=== PATIENT | female | born 1960 | race Two or more races ===

== ENCOUNTER 2016-03-23 06:53 | Day surgery (SDC) | payer OTHER ==
[~2016-03-23] VITALS: Ht 160 cm; Wt 71.7 kg
[2016-03-23] MEDS ORDERED: LISI20TA11 PO (08:17)
[2016-03-23] MEDS ORDERED: SYN112 PO (08:17)
[2016-03-23 08:19] VITALS: Ht 160 cm; Wt 71.7 kg
[2016-03-23] MEDS ORDERED: ATEN-51 PO (08:32)
[2016-03-23 08:45] VITALS: BP 138/78; PULSE 89; RESP 20
[2016-03-23] MEDS ORDERED: MIDAZOLAM 1 MG/ML 2 ML INJ ONE ×2 (09:30)
[2016-03-23] MEDS ORDERED: FENTAnyl 50 MCG/ML VIAL ONE ×2 (09:30)
[2016-03-23 09:55] VITALS: BP 104/68; PULSE 56; RESP 13
--- NOTE | 2016-03-23 14:56 | GILP ---
DATE OF PROCEDURE: NAME OF PROCEDURE: Colonoscopy. SURGEON: Teressa San MD PREOPERATIVE DIAGNOSIS: Screening colonoscopy. POSTOPERATIVE DIAGNOSES: 1. Colonoscopy all the way to the cecum. 2. Internal hemorrhoids. 3. No colon neoplasm was identified. INDICATION FOR THE PROCEDURE: Ms. Gisele Garcia is a 55-year-old female patient who was scheduled f or screening colonoscopy. The procedure and possible complications were well explained to the patient, she understood and cons ented to the procedure. DESCRIPTION OF PROCEDURE: Under the influence of fentanyl and Versed, the colonoscope was carefully introduced in the rectum and under direct vision, it was advanced all the way to the cecum. FINDINGS: The patient had internal hemorrhoids. No colon neoplasm was identified. She tolerated the procedure very well, and there was no complication from the procedure. At the end of the procedures, she was awake with stable vital signs, and she was discharged home to the care o f her family. IMPRESSION: 1. Colonoscopy all the way to the cecum. 2. Internal hemorrhoids. 3. No colon neoplasm was identified. PLAN: Next screening colonoscopy in 10 years. Dictated By: TERESSA REZA/LANETTE Conf#: [id number] DID#: [id number]
== END 2016-03-23 10:48 | disposition home or self-care (01) ==
LOC: GIL 06:53
PROVIDERS: ATTEND Internal Medicine Gastroenterology
DX: Z12.11 Encounter for screening for malignant neoplasm of colon (principal); K64.8 Other hemorrhoids; I10 Essential (primary) hypertension
CPT/HCPCS: 45378; J2250; J3010; Z7610

== ENCOUNTER 2018-01-04 00:36 | Emergency (ER) | END 2018-01-04 04:14 | disposition home or self-care (01) ==